=== PATIENT | male | born 1950 ===

== ENCOUNTER 2019-09-28 08:16 | Day surgery (SDC) | payer MEDICARE, OTHER, SELFPAY ==
[2019-09-27 13:01] VITALS: BMI 30.4
[2019-09-28 08:43] VITALS: BP 129/72; PULSE 59; RESP 18; TEMP 36.4; O2SAT 100
[2019-09-28] MEDS: sodium chloride 0.9% 1,000 ML 30 ML IV (08:53)
--- NOTE | 2019-09-28 09:00 | ANES.PREANE2 ---
Pre-Anesthetic Assessment Pre-Anesthetic Assessment: Height/Weight: Height 1.75 m Weight 93.44 kg Temp Pulse Resp BP Pulse Ox 97.5 F L 59 L 18 129/72 100 09/28/19 08:43 09/28/19 08:43 09/28/19 08:43 09/28/19 08:43 09/28/19 08:43 Preop Diagnosis: Screening Proposed Procedure: Operation Date: 09/28/19 09:45 Proposed Procedures p Colonoscopy/possible biopsy possible polypectomy 91750 Z12.11(Not Applicable) - Haris Barber MD Familial anesthetic complications: None Was Beta Ramiro taken within 24 hours: Yes Last intake: Intake Last Liquid Date 09/27/19 Last Liquid Time 19:00 Last Solid Date 09/26/19 Last Solid Time 22:00 Social: Social History: No alcohol and No tobacco Exam: Pre-Anes Outpt Exam: alert, oriented x 3, clear to auscultation bilaterally and regular rate & rhythm Airway: Cervical ROM: WNL MP: 2 Dentition: Full CV/HEM: CV/HEM: HTN : : None reported Hepatic: Hepatic: None reported GI: GI: None reported Metabolic: Metabolic: Morbid obesity Musc/skel: Musc/skel: None reported Neuropsych: Neuropsych: CVA (1991 - no residual symptoms) Anesthetic Plan: ASA status: 2 Anesthesia: MAC Risk of > 500 ml blood loss (7ml/kg in children): No Meds/Allergies Current Medications: Current Medications Generic Name Dose Route Start Last Admin Trade Name Freq PRN Reason Stop Dose Admin Sodium Chloride 1,000 mls @ 30 ml s/hr 09/28/19 08:45 09/28/19 08:53 Sodium Chloride 0.9% IV 30 mls/hr .Q24H SELMA Administration PFSH Anesthesia PFSH: Medical History H/O: CVA (cerebrovascular accident) Hypertension Surgical History H/O colonoscopy 15 years ago Family History Father CAD (coronary artery disease) Brother Diabetes Denies family history of Anesthesia complication Bleeding disorder Social History Smoking and tobacco status: former smoker Alcohol intake: current Alcohol intake frequency: 3 or more drinks per day Household members: spouse Marital status: Current occupational status: retired Current gender identity: Male Data Anesthesia Cardiac Studies: No Data to Display
--- NOTE | 2019-09-28 10:09 | W.PM.OPSUD ---
Surgery/Procedure H&P Update DATE OF PROCEDURE: September 28, 2019 DATE H&P PERFORMED: 09/24/19 H&P UPDATE INFORMATION: I have reviewed H&P completed within last 30 days, I have examined patient prior to procedure and No changes to prior documentation PREOP DIAGNOSIS: Screening PLANNED PROCEDURE: Operation Date: 09/28/19 09:45 Proposed Procedures p Colonoscopy/possible biopsy possible polypectomy 55976 Z12.11(Not Applicable) - Haris Barber MD
[2019-09-28 10:25] VITALS: BP 95/56; PULSE 55; RESP 16; TEMP 1022; TEMP 550; O2SAT 95
--- NOTE | 2019-09-28 10:27 | ANE.PACU2 ---
Inpatient post-anesthesia follow up: Airway intact: Yes Vital signs: Temperature 97.5 F Pulse Rate 59 Respiratory Rate 18 Blood Pressure 129/72 Pulse Oximetry 100 Oxygen Delivery Me thod Room Air Oxygen Flow Rate Fraction of Inspir ed Oxygen Hydration adequate: Yes Nausea and vomiting: No Pain level: 1 Mental status: Baseline
== END 2019-09-28 10:50 | disposition home or self-care (01) ==
PROVIDERS: PCP Family Medicine; Visit Provider Surgery
PROC: 0DJD8ZZ Inspection of Lower Intestinal Tract, Via Natural or Artificial Opening Endoscopic (ICD-10-PCS; CPT 45378; principal; 2019-09-28 09:45)
DX: Z12.11 Encounter for screening for malignant neoplasm of colon (principal); Z79.82 Long term (current) use of aspirin; Z87.891 Personal history of nicotine dependence; I10 Essential (primary) hypertension; E66.01 Morbid (severe) obesity due to excess calories; Z68.30 Body mass index [BMI] 30.0-30.9, adult; Z86.73 Personal history of transient ischemic attack (TIA), and cerebral infarction without residual deficits
CPT/HCPCS: 12345; G0121; J2704; J7030

== ENCOUNTER → 2021-08-28 13:11 | Outpatient (BNVA) | payer MEDICARE, SELFPAY | PROVIDERS: PCP Family Medicine; Visit Provider Family Medicine | DX: I63.9 Cerebral infarction, unspecified (principal); Z00.00 Encounter for general adult medical examination without abnormal findings; I10 Essential (primary) hypertension | CPT/HCPCS: 80053; 80061 ==

== ENCOUNTER → 2022-09-24 08:35 | Outpatient (BNVA) | payer MEDICARE, SELFPAY | PROVIDERS: PCP Family Medicine; Visit Provider Family Medicine | DX: I10 Essential (primary) hypertension (principal); Z86.73 Personal history of transient ischemic attack (TIA), and cerebral infarction without residual deficits | CPT/HCPCS: 80053; 80061 ==

== ENCOUNTER → 2023-09-25 11:29 | Outpatient (BNVA) | payer MEDICARE, SELFPAY | PROVIDERS: PCP Family Medicine; Visit Provider Family Medicine | DX: I10 Essential (primary) hypertension (principal); Z86.73 Personal history of transient ischemic attack (TIA), and cerebral infarction without residual deficits; Z00.00 Encounter for general adult medical examination without abnormal findings | CPT/HCPCS: 80053; 80061; 85025 ==

== ENCOUNTER → 2024-10-19 10:17 | Outpatient (BNVA) | payer MEDICARE, SELFPAY | PROVIDERS: PCP Family Medicine; Visit Provider Family Medicine | DX: Z00.00 Encounter for general adult medical examination without abnormal findings (principal); I10 Essential (primary) hypertension; R35.1 Nocturia; Z86.73 Personal history of transient ischemic attack (TIA), and cerebral infarction without residual deficits | CPT/HCPCS: 80053; 80061; 83880; 84153 ==

== ENCOUNTER 2024-10-29 12:43 | Outpatient (CLI) | payer MEDICARE, SELFPAY ==
--- NOTE | 2024-10-29 13:15 | USCV_ITS ---
iDno Mena Age: 73 Gender: M : 1950 Exam Date: 10/29/2024 13:45 Ordering Phys: Joe Santiago MD Technologist: [employer] Exam Location: [facility] – [place]_ Indication: hx of CVA pt stated rt ICA has been occluded since soemtime in 1989 Risk Factors: Previous Vascular Surgery: Right Brachial BP: / Left Brachial BP: / Right Left Velocity (cm/s) Spectral Plaque Velocity (cm/s) Spectral Plaque Syst/Diast Broadening Syst/Diast Broadening 83.20/ 11.50 Prox CCA 94.90 / 29.80 50.50/ 10.30 Mid CCA 103.60/ 26.50 57.40/ 13.20 Distal CCA 101.20/ 19.10 / Prox ICA 129.00/ 24.60 / Mid ICA 84.20 / 27.10 / Distal ICA 72.30 / 25.10 136.20 ECA 167.50 ICA/CCA 1.30 Antegrade Vertebral Antegrade 52.70/ 15.60 cm/s 46.60/ 11.30 cm/s Tri Subclavian Tri 122.3 139.0 0 0 FINDINGS Reported history of chronic ICA occlusion in the 90's. CONCLUSIONS Chronic appearing RIGHT ICA occlusion. This could be further evaluated with CTA Head and neck Left ICA stenosis 50-69% closer to 50 percent. Moderate atheromatous plaque left carotid bulb/ICA. Normal antegrade Doppler flow noted in the right vertebral artery. Normal antegrade Doppler flow noted in the left vertebral artery. Des Mallory MD (Electronically Signed) Final Date: 29 October 2024 16:27 S
== END 2024-10-29 12:44 | disposition home or self-care (01) ==
PROVIDERS: PCP Family Medicine; Visit Provider Family Medicine
DX: Z86.73 Personal history of transient ischemic attack (TIA), and cerebral infarction without residual deficits (principal); Z86.79 Personal history of other diseases of the circulatory system; I65.22 Occlusion and stenosis of left carotid artery
CPT/HCPCS: 93880